=== PATIENT | male | born 1995 | race African-American/Black ===

== ENCOUNTER 2016-12-01 14:27 | Outpatient (CLI) ==
[2016-12-01 19:07] LABS: FLU INTERNAL QC INTERNAL QC VALID; RAPID FLU A NEGATIVE (NEGATIVE); RAPID FLU B NEGATIVE (NEGATIVE)
== END 2016-12-01 14:28 | disposition home or self-care (01) ==
LOC: LAB 14:27
PROVIDERS: ATTEND Nurse Practitioner Family
DX: J02.9 Acute pharyngitis, unspecified (principal); R52 Pain, unspecified; Z09 Encounter for follow-up examination after completed treatment for conditions other than malignant neoplasm; Z20.2 Contact with and (suspected) exposure to infections with a predominantly sexual mode of transmission
CPT/HCPCS: 87651; 87804; 87880

== ENCOUNTER 2016-12-04 15:31 | Outpatient (CLI) | END 2016-12-04 15:32 | disposition home or self-care (01) | LOC: LAB 15:31 | PROVIDERS: ATTEND Nurse Practitioner Family | DX: Z09 Encounter for follow-up examination after completed treatment for conditions other than malignant neoplasm (principal); Z20.2 Contact with and (suspected) exposure to infections with a predominantly sexual mode of transmission | CPT/HCPCS: 87800 ==

== ENCOUNTER 2016-12-05 12:33 | Outpatient (CLI) ==
[2016-12-05 13:40] LABS: MONO INTERNAL QC INTERNAL QC VALID
== END 2016-12-05 12:34 | disposition home or self-care (01) ==
LOC: LAB 12:33
PROVIDERS: ATTEND Nurse Practitioner Family
DX: R50.9 Fever, unspecified (principal); R51 Headache
CPT/HCPCS: 36415; 86308

== ENCOUNTER 2017-03-05 21:47 | Emergency (ER) | payer OTHER ==
[2017-03-05 21:58] VITALS: BP 145/76; TEMP 98.9; BMI 20.9
--- NOTE | 2017-03-05 22:29 | ED.PDOC ---
General ED Provider: Dr. PUJA MEDINA-ER Chief Complaint: Knee Pain/Injury Stated Complaint: i pulled a muscle in my left knee 2 days ago --it still hurts Time Seen by Physician: 22:27 Mode of Arrival: Walk-In Information Source: Patient Exam Limitations: No limitations Primary Care Provider: PAM SANCHEZ Nursing and Triage Documentation Reviewed and Agree: Yes Musculoskeletal Complaint Exam - Knee Pain Complaint/Exam Mechanism of Injury: Reports: No known trauma Onset/Duration: 2 days Symptoms Are: Still present Onset of Pain: Reports: Immediate Initial Severity: Mild Current Severity: Moderate Location: Reports: Discrete (left knee) Character: Reports: Dull, Aching, Stiffness Alleviating: Reports: None Aggravating: Reports: Movement, Weight bearing, Prolonged standing Associated Signs and Symptoms: Denies: Swelling, Redness, Bruising, Fever, Weakness, Numbness, Tingling Able to Bear Weight: Yes Septic Arthritis Risk Factors: Reports: None Gout Risk Factors: Reports: None Knee Findings: Present: Tenderness, Limited range of motion Ilana Test Positive: No Pati Test Positive: No Limited Range of Motion: Present: Active, Passive, Flexion, Extension Differential Diagnoses: Sprain, Strain Review of Systems - Review Of Systems Constitutional: Reports: No symptoms Eyes: Reports: No symptoms Ears, Nose, Mouth, Throat: Reports: No symptoms Respiratory: Reports: No symptoms Cardiac: Reports: No symptoms GI: Reports: No symptoms : Reports: No symptoms Musculoskeletal: Reports: Joint pain, Muscle pain Skin: Reports: No symptoms Neurological: Reports: No symptoms Endocrine: Reports: No symptoms Hematologic/Lymphatic: Reports: No symptoms All Other Systems: Reviewed and Negative Past Medical History - Past Medical History Previously Healthy: Yes Endocrine: Reports: Unknown Cardiovascular: Reports: Unknown Respiratory: Reports: Unknown Hematological: Reports: Unknown Gastrointestinal: Reports: Unknown Genitourinary: Reports: Unknown Neuro/Psych: Reports: None Musculoskeletal: Reports: None Cancer: Reports: None - Surgical History General Surgical History: Reports: Unknown - Family History Family History: Reports: Unknown - Social History Smoking Status: Current some day smoker, Vaping Hx Substance Use: No Alcohol Screening: None Lives: With family - Immunizations Tetanus Shot up to Date: Yes Physical Exam - Physical Exam Appearance: Well-appearing, No pain distress, Well-nourished Eyes: DELFINO, EOMI, Conjunctiva clear ENT: Ears normal, Nose normal, Oropharynx normal Neck: Supple Respiratory: Airway patent, Breath sounds clear, Breath sounds equal, Respirations nonlabored Cardiovascular: RRR, Pulses normal, No rub, No murmur GI/: Soft, Nontender, No masses, Bowel sounds normal, No Organomegaly Musculoskeletal: Limited ROM Skin: Warm, Dry, Normal color Neurological: Sensation intact, Motor intact, Reflexes intact, Cranial nerves intact, Alert, Oriented Psychiatric: Affect appropriate, Mood appropriate Interpretation - Radiology Interpretation Radiology Interpretation By: ED Physician Radiology Results: Negative Critical Care Note - Critical Care Note Total Time (mins): 0 Course - Course Orders, Labs, Meds: Orders Category Date Time Status KNEE, LEFT 4 VIEWS Stat RADS 03/05/17 22:26 Taken Vital Signs: Temp Pulse Resp BP Pulse Ox 03/05/17 21:48 98.9 F 95 H 16 145/76 H 99 Departure - Departure Time of Disposition: 22:44 Disposition: HOME SELF-CARE Discharge Problem: Knee pain Instructions: Knee Pain (ED) Condition: Good Pt referred to PMD for follow-up: Yes Additional Instructions: cataflam 50mg tid #30--f/u with pcp this week and consider mri of the knee Allergies/Adverse Reactions: Allergies seafood Adverse Reaction (Unknown, Uncoded 03/05/17 21:58) SWELLING THROAT Home Medications: Ambulatory Orders Cetirizine HCl [Zyrtec] 10 mg PO DAILY 03/05/17 Disposition Discussed With: Patient
--- NOTE | 2017-03-05 23:01 | DI ---
Exam: Left knee four views History: Injury and pain Findings / impression: No acute bony or articular abnormalities are seen. Prior anterior cruciate ligament surgery. The medial and lateral compartments appear normal. No joint effusion is seen.
== END 2017-03-05 22:45 | disposition home or self-care (01) ==
LOC: ED 21:47
DX: M25.562 Pain in left knee (principal)
CPT/HCPCS: 99282

== ENCOUNTER 2017-10-09 16:00 | Outpatient (CLI) | END 2017-10-09 16:01 | disposition home or self-care (01) | LOC: LAB 16:00 | PROVIDERS: ATTEND Nurse Practitioner Family | DX: R05 Cough (principal); R51 Headache; J02.9 Acute pharyngitis, unspecified | CPT/HCPCS: 87502; 87651 ==

== ENCOUNTER 2017-12-19 18:05 | Emergency (ER) ==
[2017-12-19 18:16] VITALS: BP 123/81; TEMP 98.5; BMI 27.7
--- NOTE | 2017-12-19 18:30 | ED.PDOC ---
General ED Provider: Dr. KAUSHIK DESOUZA Chief Complaint: Extremity Pain/Injury Stated Complaint: RIGHT ELBOW Time Seen by Physician: 18:09 Information Source: Patient Exam Limitations: No limitations Primary Care Provider: PAM SANCHEZ Nursing and Triage Documentation Reviewed and Agree: Yes Reviewed sepsis parameters & appropriate labs ordered?: Yes System Inflammatory Response Syndrome: Not Applicable Sepsis Protocol: For patient's 13 years and over: Temp is 96.8 and below OR 101 and greater Pulse >90 BPM Resp >20/minute Acutely Altered Mental Status Are patient's symptoms suggestive of a new infection, such as: -Pneumonia -Skin, Soft Tissue -Endocarditis -UTI -Bone, Joint Infection -Implantable Device -Acute Abdominal Infection -Wound Infection -Meningitis -Blood Stream Catheter Infection -Unknown System Inflammatory Response Syndrome: Not Applicable Review of Systems - Review Of Systems Constitutional: Reports: No symptoms Eyes: Reports: No symptoms Ears, Nose, Mouth, Throat: Reports: No symptoms Respiratory: Reports: No symptoms Cardiac: Reports: No symptoms GI: Reports: No symptoms : Reports: No symptoms Musculoskeletal: Reports: No symptoms Skin: Reports: No symptoms Neurological: Reports: No symptoms Endocrine: Reports: No symptoms Hematologic/Lymphatic: Reports: No symptoms All Other Systems: Reviewed and Negative Past Medical History - Past Medical History Previously Healthy: Yes Endocrine: Reports: Unknown Cardiovascular: Reports: Unknown Respiratory: Reports: Unknown Hematological: Reports: Unknown Gastrointestinal: Reports: Unknown Genitourinary: Reports: Unknown Neuro/Psych: Reports: None Musculoskeletal: Reports: None Cancer: Reports: None - Surgical History General Surgical History: Reports: Unknown - Family History Family History: Reports: Unknown - Social History Smoking Status: Current some day smoker, Vaping Hx Substance Use: Yes (THC) Alcohol Screening: Occasionally - Immunizations Tetanus Shot up to Date: Yes Physical Exam - Physical Exam Appearance: Well-appearing, No pain distress, Well-nourished Eyes: DELFINO, EOMI, Conjunctiva clear ENT: Ears normal, Nose normal, Oropharynx normal Respiratory: Airway patent, Breath sounds clear, Breath sounds equal, Respirations nonlabored Cardiovascular: RRR, Pulses normal, No rub, No murmur GI/: Soft, Nontender, No masses, Bowel sounds normal, No Organomegaly Musculoskeletal: Normal strength, ROM intact, No edema, No calf tenderness Skin: Warm, Dry, Normal color Neurological: Sensation intact, Motor intact, Reflexes intact, Cranial nerves intact, Alert, Oriented Psychiatric: Affect appropriate, Mood appropriate Critical Care Note - Critical Care Note Total Time (mins): 0 Course - Course Vital Signs: Temp Pulse Resp BP Pulse Ox 12/19/17 18:09 98.5 F 89 16 123/81 98 Departure - Departure Time of Disposition: 18:29 Disposition: HOME SELF-CARE Discharge Problem: Elbow sprain Qualifiers: Encounter type: initial encounter Laterality: right Qualified Code(s): S53.401A - Unspecified sprain of right elbow, initial encounter Instructions: Arthralgia (ED), Elbow Sprain (ED) Condition: Good Pt referred to PMD for follow-up: Yes IPMP verified?: No Additional Instructions: Please call your Family Physician as soon as possible to schedule a follow-up appointment. Prescriptions: Hydrocodone/Acetaminophen [[place] 5-325 Tablet] 1 each PO Q6HR PRN #7 tablet PRN Reason: PAIN Allergies/Adverse Reactions: Allergies seafood Adverse Reaction (Unknown, Uncoded 03/05/17 21:58) SWELLING THROAT Home Medications: Ambulatory Orders Cetirizine HCl [Zyrtec] 10 mg PO DAILY 03/05/17 Ibuprofen 200 mg PO 3-4XD PRN 10/09/17 Hydrocodone/Acetaminophen [[place] 5-325 Tablet] 1 each PO Q6HR PRN #7 tablet Disposition Discussed With: Patient
--- NOTE | 2017-12-19 19:58 | DI ---
EXAM: Three views of the right elbow. HISTORY: Injury. Pain. FINDINGS: The bones are intact with no evidence of fracture. The joint spaces are maintained. No sof t tissue abnormality. Impression: Negative right elbow.
== END 2017-12-19 20:07 | disposition home or self-care (01) ==
LOC: ED 18:05
DX: S53.401A Unspecified sprain of right elbow, initial encounter (principal); X50.1XXA Overexertion from prolonged static or awkward postures, initial encounter; Z72.0 Tobacco use
CPT/HCPCS: 99282

== ENCOUNTER 2018-05-07 16:49 | Outpatient (CLI) | END 2018-05-07 16:50 | disposition home or self-care (01) | LOC: LAB 16:49 | PROVIDERS: ATTEND Nurse Practitioner Family | DX: Z20.5 Contact with and (suspected) exposure to viral hepatitis (principal) | CPT/HCPCS: 36415; 80053; 80074; 86708; 86803; 87340; 87522 ==